=== PATIENT | female | born 1965 | race Two or more races ===

== ENCOUNTER 2016-12-11 18:00 | Emergency (ER) | payer MEDICAID, OTHER ==
[~2016-12-11] VITALS: Ht 160 cm; Wt 115.7 kg
[2016-12-11 18:42] LABS: Basophils # (auto) 0 uL; Basophils % (auto) 0.2 % (0.0-2.0); Eosinophils # (auto) 0.1 uL; Eosinophils % (auto) 1.7 % (0.0-7.0); Hematocrit 43.9 % (36.0-46.0); Hemoglobin 14.2 g/dL (12.2-16.2); Lymphocytes # (auto) 2.5 uL; Lymphocytes % (auto) 31.5 % (10.0-50.0); Mean Corpuscular Hemoglobin 29.5 pg (28.0-32.0); Mean Corpuscular Hgb Conc. 32.4 g/dL (32.0-36.0); Mean Corpuscular Volume 90.8 fL (80.0-100.0); Mean Platelet Volume 10.5 fL (7.4-10.4); Monocytes # (auto) 0.7 uL; Monocytes % (auto) 8.3 % (0.0-12.0); Neutrophils # (auto) 4.6 uL; Neutrophils % (auto) 58.3 % (37.0-80.0); Platelet Count (auto) 156 10^3/uL (140-450); Red Cell Distribution Width 14.5 % (11.6-16.0); SUSPECT VIEW TRANSMISSION; White Blood Cell 7.9 10^3/uL (4.4-10.8)
[2016-12-11 19:07] LABS: Albumin 3.9 g/dL (3.4-5.0); Anion Gap 6 (5-15); Aspartate Aminotransferase 46 U/L (15-37); BUN/Creatinine Ratio 11.9; Blood Urea Nitrogen 13 mg/dL (7-18); Calcium 8.9 mg/dL (8.5-10.1); Carbon Dioxide 28 mmol/L (21-32); Chloride 108 mmol/L (98-107); GFR African American 68 mL/min; GFR Non-African American 56 mL/min; Glucose 88 mg/dL (74-106); Potassium 5.3 mmol/L (3.5-5.1); Sodium 142 mmol/L (136-145)
[2016-12-11 19:11] LABS: Alkaline Phosphatase 105 U/L (45-117); Bilirubin, Total 0.3 mg/dL (0.2-1.0)
[2016-12-11 21:51] LABS: Urine Bilirubin Negative (Negative); Urine Blood Negative /uL (Negative); Urine Color Yellow (Yellow); Urine Glucose Normal (Normal); Urine Ketone Negative (Negative); Urine Nitrite Negative (Negative); Urine RBC 1 /hpf (0 - 4); Urine Squamous Epithelial Cell FEW /hpf (<5); Urine Urobilinogen Normal (Negative)
[2016-12-11] MEDS ORDERED: IOHEXOL 300 MG/ML 100ML BOTTLE IJ ONE (21:52)
[2016-12-11] MEDS ORDERED: HYDROcodone-ACET 5/325MG TAB PO ONE (22:00)
[2016-12-11] MEDS ORDERED: SODIUM CHLORIDE 0.9% 1,000 ML IV ONE (22:00)
[2016-12-11 22:11] LABS: Platelet Clumps FEW
[2016-12-12 01:46] VITALS: BP 118/70
== END 2016-12-12 01:53 | disposition home or self-care (01) ==
LOC: ER 18:00
DX: E27.9 Disorder of adrenal gland, unspecified (principal); K59.00 Constipation, unspecified
CPT/HCPCS: 36415; 74177; 80053; 81001; 83690; 84484; 84702; 85025; 93005; 96360; 99285; J7030; Q9967